=== PATIENT | male | born 1950 | race Two or more races ===

== ENCOUNTER 2021-02-22 11:37 | Outpatient (REF) | payer MEDICARE, OTHER, SELFPAY ==
--- NOTE | ~2021-02-22 | XR_ITS ---
EXAMINATION: XR CERVICAL SPINE CLINICAL INFORMATION: Neck pain COMPARISON: None TECHNIQUE: 3 views of the cervical spine were obtained. FINDINGS: There is mild anterior subluxation of C4 with respect to C5 measuring 2 mm. Bone alignment is otherwise normal. There is degenerative spondylosis and degenerative disc disease at C5-C6 and C6-C7. 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 Prevertebral soft tissues are normal. XR/XR cervical spine 3V IMPRESSION: Degenerative changes.
== END 2021-02-22 11:38 | disposition home or self-care (01) ==
LOC: HO.XRAY 11:37
PROVIDERS: PCP Internal Medicine; Visit Provider Physician Assistant
DX: M54.2 Cervicalgia (principal)
CPT/HCPCS: 72040

== ENCOUNTER 2021-12-20 13:02 | Outpatient (REF) | payer MEDICARE, SELFPAY ==
[2021-12-20 13:53] LABS: Hematocrit 41.6 % (42.0-52.0); Hemoglobin 14.2 g/dl (14.0-18.0); Mean Corpuscular HGB Conc 34.1 g/dl (31.0-36.0); Mean Corpuscular Hemoglobin 30.1 pg (27.0-33.0); Mean Corpuscular Volume 88.1 fL (80.0-98.0); Mean Platelet Volume 10.6 fL (9.4-12.4); Platelet Count 242 X10*3/uL (160-400); Red Blood Count 4.72 X10*6/uL (4.60-5.80); Red Cell Distribution Width 13.9 % (11.0-16.0); White Blood Count 11.8 X10*3/uL (4.8-10.8)
[2021-12-20 13:58] LABS: Appearance Urine CLEAR; Color Urine YELLOW; Glucose Urine UA NEG (NEG); Leukocyte Esterase Urine NEG (NEG); Nitrite Urine NEG (NEG); Specific Gravity - Urine >= 1.030 (1.005-1.025); Urine Blood NEG (NEG); Urine Ketones 15 MG/DL (NEG); Urine Protein NEG (NEG-TRACE)
[2021-12-20 14:11] LABS: Alanine Aminotransferase 22 U/L (0-40); Albumin Level 4.3 g/dL (3.5-5.0); Alkaline Phosphatase 79 U/L (39-117); Anion Gap 14 (12-20); Aspartate Amino Transferase 22 U/L (5-37); Bilirubin Direct 0.4 mg/dL (0.0-0.5); Bilirubin Total 1.1 mg/dL (0.0-1.0); Blood Urea Nitrogen 14 mg/dL (9-16); Calcium 9.6 mg/dL (8.4-10.2); Carbon Dioxide 23 mmol/L (22-29); Chloride 104 mmol/L (96-108); Cholesterol 157 mg/dL; Estimated Glomerular Filt Rate > 60; Glucose Random 104 mg/dL (60-115); HDL Cholesterol 41 mg/dL; LDL Cholesterol Calculated 104 mg/dl; Potassium 4.3 mmol/L (3.3-5.1); Sodium 137 mmol/L (135-145); Total Protein 7.5 g/dL (6.5-8.0); Triglycerides 64 mg/dL
== END 2021-12-20 13:03 | disposition home or self-care (01) ==
LOC: HO.HMGCLDS 13:02
PROVIDERS: Visit Provider Internal Medicine
DX: E78.00 Pure hypercholesterolemia, unspecified (principal)
CPT/HCPCS: 36415; 80048; 80061; 80076; 81003; 85027

== ENCOUNTER 2022-06-03 16:32 | Outpatient (REF) | payer MEDICARE, SELFPAY ==
--- NOTE | ~2022-06-03 | XR_ITS ---
EXAMINATION: XR CHEST CLINICAL INFORMATION: Back pain COMPARISON: Previous chest x-ray most recent from 2013 TECHNIQUE: 2 views of the chest were obtained. FINDINGS: The cardiac and mediastinal contours are normal. There are 2 stable dense nodules of the left lateral costophrenic angle probably representing calcified granulomas. There are faint nodular opacities at both lung bases that appear symmetric probably representing nipple shadows, overlying the right anterior sixth rib and between the left anterior fifth and sixth ribs each measuring 8 mm. The lungs are otherwise clear. There is no pleural effusion or pneumothorax. Bony structures are unremarkable. XR/XR chest 2V IMPRESSION: No evidence for acute disease in the chest. Probable calcified granulomas at the left lateral costophrenic angle and nipple shadows at the lung bases. Follow-up chest x-ray with nipple markers recommended.
== END 2022-06-03 16:33 | disposition home or self-care (01) ==
LOC: HO.XRAY 16:32
PROVIDERS: PCP Internal Medicine; Visit Provider Internal Medicine
DX: M54.9 Dorsalgia, unspecified (principal)
CPT/HCPCS: 71046

== ENCOUNTER 2024-04-06 10:04 | Outpatient (AMB) | payer MEDICARE, SELFPAY ==
[2024-04-06 10:09] VITALS: BP 112/80; PULSE 62; O2SAT 98; BMI 24.3
--- NOTE | 2024-04-06 10:09 | A.OFFPC_ITS ---
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 Meat Required: No Accompanied by: Self / Same As Patient Allergies Penicillins [PENICILLINS] Allergy (Unknown, Verified 04/08/24 08:22) SWELLING Medication List - Last Reconciled 04/08/24 by Guillermo Castellanos MD aspirin 81 mg PO DAILY atorvastatin 20 mg PO BEDTIME Tobacco use date assessed: 04/06/24 Fall risk assessment: No Falls in past year Last assessed Fall Risk: 04/06/24 Dental Screening Dental Screen Date: 04/06/24 Did you have a dental visit in the last 12 months?: No Did you have a dental problem in the last 6 months where you did not have access to dental care?: No Was dental information given to patient?: No HPI annual exam HPI Details Patient presents to the office requesting an annual physical. [facility] Medical History Hypercholesterolemia Surgical History History of endoscopy Family History Father No problems noted. Mother No problems noted. Son No problems noted. Son No problems noted. Son No problems noted. Social History Housing: House Alcohol intake: current Alcohol intake frequency: does not drink Patient Tobacco Use Status: Former Tobacco user (2011) e-Cigarette/Vaping Use: Never Used Second Hand Smoke Exposure: No service: No Current occupational status: retired Cognitive needs: No Hearing needs: No Vision needs: No Questionnaire PHQ-9 Over the last 2 weeks, how often have you been bothered by any of the following problems? 1. Little interest or pleasure in doing things: not at all 2. Feeling down, depressed, or hopeless: not at all 3. Trouble falling or staying asleep, or sleeping too much: not at all 4. Feeling tired or having little energy: not at all 5. Poor appetite or overeating: not at all 6. Feeling bad about yourself - or that you are a failure or have let yourself or your family down: not at all 7. Trouble concentrating on things, such as reading the newspaper or watching television: not at all 8. Moving or speaking so slowly that other people could have noticed. Or the opposite - being so fidgety or restless that you have been moving around a lot more than usual: not at all 9. Thoughts that you would be better off or of hurting yourself in some way: not at all Total score: 0 Depression Screening Interpretation: Negative Depression Screening Done: Yes Source: Developed by Drs. Chai Leon, Jeannette Chu, Leonidas Dhaliwal and colleagues, with an educational mary from [employer]. Thrive Questionnaire Date Thrive assessed: 04/06/24 I am a: Patient What is your living situation today?: I have a steady place to live Within the past 12 months, did the food you bought not last and you didn't have the money to get more?: Never true Within the past 12 months, did you worry whether your food would run out before you got money to buy more?: Never true Do you have trouble paying for medicines?: No Do you have trouble getting transportation to medical appointments?: No Do you have trouble paying your heating and electricity bill?: No Do you have trouble taking care of your child, family member or friend?: No Do you have trouble with day-to-day activities such as bathing, preparing meals, shopping, managing finances, etc.?: No Are you currently unemployed and looking for a job?: No Are you interested in more education?: No Please select the resources that you would like help with: None Currently or been in a relationship where the following occur: No concerns reported THRIVE Score: 0 AUDIT C Alcohol Use Questionnaire (AUDIT-C) 1. How often do you have a drink containing alcohol?: Never Total Score: 0 TAPAN-7 AMB Questionnaire TAPAN-7 Date TAPAN - 7 assessed: 04/06/24 Feeling nervous, anxious, or on edge: 0 = Not at all Not being able to stop or control worryin = Not at all Worrying too much about different things: 0 = Not at all Trouble relaxin = Not at all Being so restless that it is hard to sit still: 0 = Not at all Becoming easily annoyed or irritable: 0 = Not at all Feeling afraid as if something awful might happen: 0 = Not at all Total TAPAN-7 score (0-4 normal; 5-9 mild; 10-14 moderate; 15-21 severe): 0 Source: Developed by Drs. Chai Leon, Jeannette Chu, Leonidas Dhaliwal and colleagues, with an educational mary from [employer]. Physical exam (Primary Care) Vital Signs: Last Vital Signs Pulse 62 04/06/24 10:09 BP 112/80 04/06/24 10:09 Pulse Ox 98 04/06/24 10:09 Oxygen Delivery Method Room Air 04/06/24 10:09 Care Plan Goal for BP management: Blood pressure is in range. BMI result Body Mass Index 24.3 Tobacco/Smoking Status: Tobacco use Status Tobacco use date assessed 04/06/24 04/06/24 10:11 Patient Tobacco Use Status Former Tobacco user (2011) 04/06/24 10:11 e-Cigarette/Vaping Use Never Used 04/06/24 10:11 PHQ-9: PHQ-9 Score PHQ-9: Total score 0 04/06/24 10:26 Depression Screening Interpretation: Negative Thrive Assessment: Date of Thrive Assessment Date Thrive assessed 04/06/24 04/06/24 10:11 Currently or been in a relationship where the following occur: No concerns reported Const General: cooperative and healthy appearing Nutritional Appearance: well nourished Orientation/consciousness: patient oriented x3 Limitations: no limitations HENMT Head: Yes normal to inspection Eyes General: appearance normal, both eyes and all related structures Neck Neck: Yes normal visual inspection Chest Chest palpation & inspection: normal palpation of entire chest wall Resp Effort & Inspection: normal respiratory effort Neuro General: patient oriented x3 Assessment and Plan Assessment & Plan (1) Annual physical exam: Code(s): Z00.00 - Encounter for general adult medical examination without abnormal findings Plan: Patient has intense phobia for needles and therefore will not get any blood work done. He understands that I will not be able to monitor his cholesterol, kidney functions or anemia status without blood work. He is also grieving for the loss of his . Patient is reluctant to get any screening tests done. Coding Level of Care Code Est Pt Prev Care >65y(50963) Diagnoses Annual physical exam Z00.00
== END 2024-04-06 11:14 | disposition home or self-care (01) ==
PROVIDERS: PCP Internal Medicine; Visit Provider Internal Medicine
DX: Z00.00 Encounter for general adult medical examination without abnormal findings (principal)
CPT/HCPCS: 99397

== ENCOUNTER 2024-05-09 09:21 | Outpatient (AMB) | payer MEDICARE, SELFPAY ==
--- NOTE | 2024-05-09 09:28 | MHC.PC.OV ---
Vital Signs 05/09/24 09:29 Height 5 ft 7 in Weight 158 lb BMI 24.7 BP 110/70 Blood Pressure Location Lt brachial Position Sitting Pulse 75 Pulse Source Pulse Oximeter Pulse Oximetry (%) 97 Oxygen Delivery Method Room Air Intake Visit Reasons: Cataract Surgery RT Eye Intake Note: Patient is here for a Pre-op for Right Eye Cataract Surgery scheduled with [facility] on (R)05/25/24 and (L) two weeks after. Coater Required: No Bone Char Kiln Operator: Not Required per policy Accompanied by: Self / Same As Patient Allergies Penicillins [PENICILLINS] Allergy (Unknown, Verified 05/10/24 19:09) SWELLING Medication List - Last Reconciled 05/10/24 by Guillermo Castellanos MD alprazolam (Xanax) 0.5 mg PO DAILY PRN aspirin 81 mg PO DAILY atorvastatin 20 mg PO BEDTIME Tobacco use date assessed: 05/09/24 Fall risk assessment: No Falls in past year Last assessed Fall Risk: 05/09/24 Dental Screening Dental Screen Date: 04/06/24 HPI Cataract Surgery RT Eye HPI Details 73-year-old male presents to the office for a preop clearance. Patient has been scheduled for cataract extraction in the right eye. Surgery is to be done under [facility]. [facility] Medical History Hypercholesterolemia Surgical History History of endoscopy Family History Father No problems noted. Mother No problems noted. Son No problems noted. Son No problems noted. Son No problems noted. Social History Housing: House Alcohol intake: current Alcohol intake frequency: does not drink Patient Tobacco Use Status: Former Tobacco user e-Cigarette/Vaping Use: Never Used Second Hand Smoke Exposure: No service: No Current occupational status: retired Cognitive needs: No Hearing needs: No Vision needs: No Questionnaire Thrive Questionnaire Date Thrive assessed: 04/06/24 TAPAN-7 AMB Questionnaire TAPAN-7 Date TAPAN - 7 assessed: 04/06/24 Source: Developed by Drs. Chai Leon, Jeannette Chu, Leonidas Dhaliwal and colleagues, with an educational mary from [email or web address]. Physical exam (Primary Care) Vital Signs: Last Vital Signs Pulse 75 05/09/24 09:29 BP 110/70 05/09/24 09:29 Pulse Ox 97 05/09/24 09:29 Oxygen Delivery Method Room Air 05/09/24 09:29 BMI result Body Mass Index 24.7 Tobacco/Smoking Status: Tobacco use Status Tobacco use date assessed 05/09/24 05/09/24 09:31 Patient Tobacco Use Status Former Tobacco user 05/09/24 09:31 e-Cigarette/Vaping Use Never Used 05/09/24 09:31 Thrive Assessment: Date of Thrive Assessment Date Thrive assessed 04/06/24 05/09/24 09:31 Const General: cooperative and healthy appearing Nutritional Appearance: well nourished Orientation/consciousness: patient oriented x3 Limitations: no limitations HENMT Head: Yes normal to inspection Eyes General: appearance normal, both eyes and all related structures Neck Neck: Yes normal visual inspection Chest Chest palpation & inspection: normal palpation of entire chest wall Resp Effort & Inspection: normal respiratory effort Neuro General: patient oriented x3 Assessment and Plan Assessment & Plan (1) Hypercholesterolemia: Code(s): E78.00 - Pure hypercholesterolemia, unspecified Plan: Continue current medications (2) Preoperative clearance: Code(s): Z01.818 - Encounter for other preprocedural examination Plan: Patient has extreme anxiety about getting blood work done. Alprazolam will be ordered and blood work should be done within an hour after he takes the medication. Based on the results his clearance will be okayed. Orders: Orders Lipid Panel Today E78.00 - Pure hypercholesterolemia, unspecified UA and rflx microscopic Today E78.00 - Pure hypercholesterolemia, unspecified Basic Metabolic Panel Today E78.00 - Pure hypercholesterolemia, unspecified Liver Panel Today E78.00 - Pure hypercholesterolemia, unspecified Thyroid Stimulating Hormone Today E78.00 - Pure hypercholesterolemia, unspecified Medications: New alprazolam (Xanax) 0.5 mg PO DAILY PRN 5 tabs 0RF anxiety Coding Level of Care Code Est Pt Level 4 (36684) Complex EM visit Add On G2211 Diagnoses Hypercholesterolemia E78.00 Preoperative clearance Z01.818
[2024-05-09 09:29] VITALS: BP 110/70; PULSE 75; O2SAT 97; BMI 24.7
== END 2024-05-09 12:28 | disposition home or self-care (01) ==
PROVIDERS: PCP Internal Medicine; Visit Provider Internal Medicine
DX: E78.00 Pure hypercholesterolemia, unspecified (principal); Z01.818 Encounter for other preprocedural examination

== ENCOUNTER → 2024-05-09 09:21 | Outpatient (BNVA) | payer MEDICARE, SELFPAY | PROVIDERS: PCP Internal Medicine; Visit Provider Internal Medicine | DX: Z01.818 Encounter for other preprocedural examination (principal); H26.9 Unspecified cataract; E78.00 Pure hypercholesterolemia, unspecified | CPT/HCPCS: 99212 ==

== ENCOUNTER 2024-05-11 09:08 | Outpatient (REF) | payer MEDICARE, SELFPAY ==
[2024-05-11 10:33] LABS: Appearance Urine Clear; Color Urine Yellow; Glucose Urine UA Negative (Negative); Leukocyte Esterase Urine Negative (Negative); Nitrite Urine Negative (Negative); PH 5.5 (5.0-9.0); Urine Blood Negative (Negative); Urine Ketones Negative (Negative); Urine Protein Negative (Neg-Trace)
[2024-05-11 10:57] LABS: Alanine Aminotransferase 24 U/L (0-40); Albumin Level 4.4 g/dL (3.5-5.0); Alkaline Phosphatase 71 U/L (39-117); Anion Gap 12 (12-20); Aspartate Amino Transferase 31 U/L (5-37); Bilirubin Direct 0.3 mg/dL (0.0-0.5); Bilirubin Total 0.9 mg/dL (0.0-1.0); Blood Urea Nitrogen 11 mg/dL (9-16); Calcium 9.7 mg/dL (8.4-10.2); Carbon Dioxide 26 mmol/L (22-29); Chloride 106 mmol/L (96-108); Cholesterol 162 mg/dL (<200); Estimated Glomerular Filt Rate > 60; Glucose Random 106 mg/dL (60-115); HDL Cholesterol 53 mg/dL (>40); LDL Cholesterol Calculated 96 mg/dL (<100); Potassium 3.7 mmol/L (3.3-5.1); Sodium 140 mmol/L (135-145); Thyroid Stimulating Hormone 1.34 uIU/mL (0.32-4.0); Total Protein 7.9 g/dL (6.5-8.0); Triglycerides 67 mg/dL (<150)
== END 2024-05-11 09:09 | disposition home or self-care (01) ==
LOC: HO.HMGCLDS 09:08
PROVIDERS: PCP Internal Medicine; Visit Provider Internal Medicine
DX: E78.00 Pure hypercholesterolemia, unspecified (principal)
CPT/HCPCS: 36415; 80048; 80061; 80076; 81003; 84443

== ENCOUNTER 2024-10-28 10:30 | Outpatient (AMB) | payer MEDICARE, SELFPAY ==
--- NOTE | 2024-10-28 10:38 | MHC.PC.OV ---
Vital Signs 10/28/24 10:41 Height 5 ft 7 in Weight 161 lb BMI 25.2 BP 120/68 Blood Pressure Location Lt brachial Position Sitting Pulse 84 Pulse Source Pulse Oximeter Temp 97.3 F Temp Source Temporal Artery Scan Pulse Oximetry (%) 99 Oxygen Delivery Method Room Air Intake Visit Reasons: rsch from 10/14/24 6 Month Follow UP Intake Note: Patient is here to follow up on Hypercholesterolemia. 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: Not Required per policy Accompanied by: Self / Same As Patient Allergies Penicillins [PENICILLINS] Allergy (Unknown, Verified 10/28/24 10:54) SWELLING Medication List - Last Reconciled 10/28/24 by Divya Lorenzo PA-C alprazolam (Xanax) 0.5 mg PO DAILY PRN aspirin 81 mg PO DAILY atorvastatin 20 mg PO BEDTIME Tobacco use date assessed: 10/28/24 Fall risk assessment: No Falls in past year Last assessed Fall Risk: 10/28/24 Dental Screening Dental Screen Date: 10/28/24 Did you have a dental visit in the last 12 months?: No Did you have a dental problem in the last 6 months where you did not have access to dental care?: No Was dental information given to patient?: No PFSH Medical History Chest discomfort Hypercholesterolemia Surgical History History of endoscopy Family History Father No problems noted. Mother No problems noted. Son No problems noted. Son No problems noted. Son No problems noted. Social History Housing: House Alcohol intake: current Alcohol intake frequency: does not drink Patient Tobacco Use Status: Former Tobacco user e-Cigarette/Vaping Use: Never Used Second Hand Smoke Exposure: Yes service: No Current occupational status: retired Cognitive needs: No Hearing needs: No Vision needs: Yes (Glasses) Questionnaire PHQ-9 Over the last 2 weeks, how often have you been bothered by any of the following problems? 1. Little interest or pleasure in doing things: not at all 2. Feeling down, depressed, or hopeless: not at all 3. Trouble falling or staying asleep, or sleeping too much: not at all 4. Feeling tired or having little energy: not at all 5. Poor appetite or overeating: not at all 6. Feeling bad about yourself - or that you are a failure or have let yourself or your family down: not at all 7. Trouble concentrating on things, such as reading the newspaper or watching television: not at all 8. Moving or speaking so slowly that other people could have noticed. Or the opposite - being so fidgety or restless that you have been moving around a lot more than usual: not at all 9. Thoughts that you would be better off or of hurting yourself in some way: not at all Total score: 0 Depression Screening Interpretation: Negative Depression Screening Done: Yes 89449 - PHQ-9 Billing: Yes Source: Developed by Drs. Chai Leon, Jeannette Chu, Leonidas Dhaliwal and colleagues, with an educational mary from [employer]. Thrive Questionnaire Date Thrive assessed: 10/28/24 I am a: Patient What is your living situation today?: I have a steady place to live Within the past 12 months, did the food you bought not last and you didn't have the money to get more?: Never true Within the past 12 months, did you worry whether your food would run out before you got money to buy more?: Never true Do you have trouble paying for medicines?: No Do you have trouble getting transportation to medical appointments?: No Do you have trouble paying your heating and electricity bill?: No Do you have trouble taking care of your child, family member or friend?: No Do you have trouble with day-to-day activities such as bathing, preparing meals, shopping, managing finances, etc.?: No Are you currently unemployed and looking for a job?: No Are you interested in more education?: No Please select the resources that you would like help with: None Currently or been in a relationship where the following occur: No concerns reported THRIVE Score: 0 AUDIT C Alcohol Use Questionnaire (AUDIT-C) 1. How often do you have a drink containing alcohol?: Never Total Score: 0 Score Reviewed/Action Taken: No TAPAN-7 AMB Questionnaire TAPAN-7 Date TAPAN - 7 assessed: 10/28/24 Feeling nervous, anxious, or on edge: 0 = Not at all Not being able to stop or control worryin = Not at all Worrying too much about different things: 0 = Not at all Trouble relaxin = Not at all Being so restless that it is hard to sit still: 0 = Not at all Becoming easily annoyed or irritable: 0 = Not at all Feeling afraid as if something awful might happen: 0 = Not at all Total TAPAN-7 score (0-4 normal; 5-9 mild; 10-14 moderate; 15-21 severe): 0 Source: Developed by Drs. hCai Leon, Jeannette Chu, Leonidas Dhaliwal and colleagues, with an educational mary from [employer]. TAPAN-7 Assessment Billing TAPAN-7 Assessment Tool: TAPAN-7 Assessment 88610 Physical exam (Primary Care) Vital Signs: Last Vital Signs Temp 97.3 F 10/28/24 10:41 Pulse 84 10/28/24 10:41 BP 120/68 10/28/24 10:41 Pulse Ox 99 10/28/24 10:41 Oxygen Delivery Method Room Air 10/28/24 10:41 BMI result Body Mass Index 25.2 Tobacco/Smoking Status: Tobacco use Status Tobacco use date assessed 10/28/24 10/28/24 10:47 Patient Tobacco Use Status Former Tobacco user 10/28/24 10:47 e-Cigarette/Vaping Use Never Used 10/28/24 10:47 PHQ-9: PHQ-9 Score PHQ-9: Total score 0 10/28/24 10:55 Depression Screening Interpretation: Negative Thrive Assessment: Date of Thrive Assessment Date Thrive assessed 10/28/24 10/28/24 10:47 Currently or been in a relationship where the following occur: No concerns reported Office Procedures EKG Details: NSR with a ventricular rate of 108 with a nonspecific changes to ST. Inclusive EKG. Pt sent to ER refused EMS. Understands risk and benefits. [id number], Complete Coding Level of Care Code Est Pt Level 5 (22246) Complex EM visit Add On G2211 Diagnoses Chest discomfort R07.89 Cervicalgia M54.2 Hypercholesterolemia E78.00 Anxiety F41.9 CPT Codes EKG - CPT: 03760-[id number], Complete ([id number]) Additional Codes TAPAN-7 Assessment Billing - TAPAN-7 Assessment Tool: TAPAN-7 Assessment 34031 ([id number]) PHQ-9 - 60822 - PHQ-9 Billing: Yes ([id number]) Assessment & Plan Assessment & Plan (1) Chest discomfort: Code(s): R07.89 - Other chest pain Category: Medical Plan: Symptoms likely linked to recent diet; EKG showed possible ischemic changes. Referral to ER for comprehensive evaluation advised.Pt offer EMS multiple times although pt denies any active chest pain and refusing EMS to ED. Pt understand risk and benefits and still refusing EMS. Pt instructed to go directly to ED. I Discussed this case with Dr. Hutchins and INO Lopez [place] [facility] [place] She is aware pt is on his way. Pt to follow up after discharged from ED/Hospital (2) Cervicalgia: Code(s): M54.2 - Cervicalgia Category: Medical Plan: Chronic neck pain documented; monitor and revisit management strategies if symptoms persist. (3) Hypercholesterolemia: Code(s): E78.00 - Pure hypercholesterolemia, unspecified Category: Medical Plan: Past lipid control with atorvastatin noted; emphasize dietary modifications avoiding added salt. (4) Anxiety: Code(s): F41.9 - Anxiety disorder, unspecified Category: Medical Plan: History of anxiety observed; discussed implications and need for monitoring, though not an acute issue today. Plan Plan Patient was informed and verbally consented to the use of an ambient scribe for clinic note documentation during this visit. 1. Anxiety History of anxiety observed; discussed implications and need for monitoring, though not an acute issue today. 2. Dyslipidemia Past lipid control with atorvastatin noted; emphasize dietary modifications avoiding added salt. 3. Chronic Neck Pain Chronic neck pain documented; monitor and revisit management strategies if symptoms persist. 4. Cardiac Symptoms Evaluation Symptoms likely linked to recent diet; EKG showed possible ischemic changes. Referral to ER for comprehensive evaluation advised. Discussion Notes I discussed with the patient the potential impact of high salt intake on cardiac symptoms, particularly in light of his recent experience with heart racing and chest discomfort. I detailed the EKG results, which indicate changes concerning for possible ischemia, and advised him on the necessity of an immediate evaluation at the emergency department to rule out acute cardiac events. I emphasized that while his symptoms have subsided, the EKG changes require urgent attention. Furthermore, I stressed the importance of maintaining a heart-healthy diet and avoiding excessive salt, particularly considering his history of dyslipidemia. I also instructed the patient to follow up with our office post-hospital discharge for continued monitoring of his cardiovascular status and to ensure successful management of his lipids and any related symptoms. Orders: Orders C Reactive Protein Today Z00.00 - Encounter for general adult medical examination without abnormal findings Lipid Panel Today Z00.00 - Encounter for general adult medical examination without abnormal findings Vitamin B1 Today Z00.00 - Encounter for general adult medical examination without abnormal findings TSH reflex Free T4 Today Z00.00 - Encounter for general adult medical examination without abnormal findings Parathyroid Hormone Intact Today Z00.00 - Encounter for general adult medical examination without abnormal findings Vitamin D 25-OH Total Today Z00.00 - Encounter for general adult medical examination without abnormal findings PSA,Total (Free>4and<10) Today Z00.00 - Encounter for general adult medical examination without abnormal findings Phosphorus Today Z00.00 - Encounter for general adult medical examination without abnormal findings AMB EKG-In Office Today R07.89 - Other chest pain Complete Blood Count Auto Diff Today Z00.00 - Encounter for general adult medical examination without abnormal findings Comprehensive [place]. Panel Fast Today Z00.00 - Encounter for general adult medical examination without abnormal findings Hemoglobin A1c Today Z00.00 - Encounter for general adult medical examination without abnormal findings Liver Panel Today Z00.00 - Encounter for general adult medical examination without abnormal findings Magnesium Today Z00.00 - Encounter for general adult medical examination without abnormal findings Zinc Today Z00.00 - Encounter for general adult medical examination without abnormal findings Vitamin B12 and Folate Today Z00.00 - Encounter for general adult medical examination without abnormal findings Patient Instructions: Patient Instructions - Avoid adding extra salt to your food, particularly chips, as it may affect your heart. - Go immediately to the ER for further evaluation as recommended, including potential blood tests and imaging. - Follow up with our office after discharge from the hospital. - Continue taking your prescribed medications, including atorvastatin and aspirin, as directed. - Monitor for any recurrence of symptoms like chest discomfort or heart racing. - Maintain a heart-healthy diet. Scribe Plan - Not visible on output: History of Present Illness The patient is a 73-year-old male presenting with cardiac symptoms evaluation. A few days ago, he added an excessive amount of salt to his chips, leading to a two-day episode of heart racing and chest discomfort. There was no pain, but he felt uneasy. These symptoms have subsided, with no current pain or discomfort. Previous blood work in March reflected normal levels for glucose and lipids. He regularly takes atorvastatin and aspirin. Social History - Family status: Mentioned a who has a history of health issues and . - Current nutritional intake: Consumes chips with added salt; expresses concerns regarding dietary habits. Review of Systems - Cardiovascular: Reports recent sensation of heart racing and chest discomfort after eating salty chips; Denies current symptoms. - Neurological: Denies dizziness. - Gastrointestinal: Denies nausea, vomiting. - Musculoskeletal: Denies jaw pain, shoulder pain, or back pain. Physical Exam Appearance: Alert. Oriented X3. No acute distress. Head: Normal external exam. Normocephalic. Atraumatic. Eyes: Pupils are equal, round, and reactive to light. Extraocular movements intact. Conjunctiva and sclera normal. Eyelids normal. Ears: External auditory canal normal. Tympanic membranes normal. Throat: Pharynx normal. Uvula midline. Moist mucous membranes. Neck: Normal inspection. Neck supple. Full range of motion. No adenopathy. Thyroid Normal. No meningeal signs. No neck mass noted. Cardiovascular: Normal heart rate and rhythm. Heart sound normal. No murmurs noted. Pulses normal throughout. Respiratory: No respiratory distress. Painless inspiration. Breath sounds normal. No wheezes/rales/rhonchi noted. Chest nontender. No accessory muscle usage noted or decreased air movement noted. Abdomen: Soft and nontender. Bowel sounds normal in all 4 quadrants. No distention noted. No organomegaly noted. No visible injury noted. Back: No costovertebral angle tenderness. Full range of motion noted. Skin: Skin warm and dry. Normal skin color. Normal skin turgor. No rashes/lesions/lacerations noted. Extremities: No lower extremity edema. Extremities exhibit normal range of motion. Extremities nontender. Neuro: Oriented X 3. No motor deficit. No sensory deficit. Reflexes normal. Results - Labs: Prior normal lipid panel and thyroid tests. - Tests and diagnostics: Recent EKG shows possible cardiac concern with ST elevation suggesting ischemia.
[2024-10-28 10:41] VITALS: BP 120/68; PULSE 84; TEMP 36.3; O2SAT 99; BMI 25.2
== END 2024-10-28 11:36 | disposition home or self-care (01) ==
LOC: HO.HMCH 10:31
PROVIDERS: PCP Internal Medicine; Visit Provider Physician Assistant Medical
DX: R07.89 Other chest pain (principal); M54.2 Cervicalgia; E78.00 Pure hypercholesterolemia, unspecified; F41.9 Anxiety disorder, unspecified

== ENCOUNTER 2024-10-28 11:33 | Emergency (ER) | payer MEDICARE, SELFPAY ==
--- NOTE | 2024-10-28 | ECG_ITS ---
Test Reason : cp Blood Pressure : */* mmHG Vent. Rate : 78 BPM Atrial Rate : 78 BPM P-R Int : 126 ms QRS Dur : 82 ms QT Int : 368 ms P-R-T Axes : 54 63 51 degrees QTcB Int : 419 ms Normal sinus rhythm Early repolarization Normal ECG When compared with ECG of 25-Nov-2013 07:24, ST more elevated in Inferior leads ST elevation now present in Lateral leads Referred By: Generic ED Physician Electronically Signed By: SUZANNA AJCOBO
--- NOTE | ~2024-10-28 | XR_ITS ---
EXAMINATION: XR CHEST CLINICAL INFORMATION: chest pain COMPARISON: And 1821. TECHNIQUE: 2 views of the chest were obtained. FINDINGS: The cardiac, hilar, and mediastinal contours are normal. Lungs are mildly diffusely hyperaerated bilaterally. There are 2 calcified granulomata in the left lower lobe laterally. Lungs otherwise clear. There is no pneumothorax or pleural effusion. There is no focal osseous or soft tissue abnormality. XR/XR chest 2V IMPRESSION: 1. Lungs appear somewhat hyperaerated however clear bilaterally. Electronically signed by: Stalin Franz MD 10/28/2024 12:08 PM EDT
[2024-10-28 11:55] VITALS: BP 133/87; PULSE 82; RESP 16; TEMP 36.6; O2SAT 94; BMI 25.1
--- NOTE | 2024-10-28 11:55 | ED.GENADULT ---
HPI - General Adult General Chief complaint: Chest Pain Stated complaint: Chest discomfort, sent by Dr Related Data Home Medications ?Medication ?Instructions ?Recorded ?Confirmed aspirin 81 mg tablet,delayed 81 mg PO DAILY 06/03/22 10/28/24 release Previous Rx's ?Medication ?Instructions ?Recorded alprazolam 0.5 mg tablet (Xanax) 0.5 mg PO DAILY PRN anxiety #5 tabs 05/09/24 atorvastatin 20 mg tablet 20 mg PO BEDTIME #90 tabs 09/16/24 Allergies Allergy/AdvReac Type Severity Reaction Status Date / Time Penicillins [PENICILLINS] Allergy Unknown SWELLING Verified 10/28/24 11:59 PMFSH Past Medical History Medical History Chest discomfort Hypercholesterolemia Surgical History History of endoscopy Family History Family History Father No problems noted. Mother No problems noted. Son No problems noted. Son No problems noted. Son No problems noted. Social History Social History Housing: House Alcohol intake: current Alcohol intake frequency: does not drink Patient Tobacco Use Status: Former Tobacco user e-Cigarette/Vaping Use: Never Used Second Hand Smoke Exposure: Yes service: No Current occupational status: retired Cognitive needs: No Hearing needs: No Vision needs: Yes (Glasses) Physical Exam ED Vital Signs: BMI result Body Mass Index 25.1 Course Course Course Narrative: This is a rapid medical exam performed by Thuy Gonzalez NP: Additional HPI, ROS, PE not included below will be deferred to primary provider. Patient is a 73-year-old male presenting to the ED with complaint of chest discomfort, sent in by PCP. Attributing symptoms to eating too many chips 2 days ago. Reports palpitations, felt heart racing. Plan: EKG, labs, viral swab, CXR Medical Decision Making Lab Data 10/28/24 12:10 10/28/24 12:10 Labs: Lab Results 10/28/24 Range/Units 12:10 WBC 9.2 (4.8-10.8) X10*3/uL RBC 5.05 (4.60-5.80) X10*6/uL Hgb 15.2 (14.0-18.0) g/dl Hct 44.1 (42.0-52.0) % MCV 87.3 (80.0-98.0) fL MCH 30.1 (27.0-33.0) pg MCHC 34.5 (31.0-36.0) g/dl RDW 14.7 (11.0-16.0) % Plt Count 221 (160-400) X10*3/uL MPV 9.5 (9.4-12.4) fL Immature Gran % (Auto) 0.2 (0.0-0.4) % Neut % (Auto) 57.5 (45-73) % Lymph % (Auto) 30.5 (20-40) % Cottle % (Auto) 10.5 (2-11) % Eos % (Auto) 0.9 (0-4) % Baso % (Auto) 0.4 (0-2) % Lymph # (Auto) 2.8 (1.2-4.9) X10*3/uL Cottle # (Auto) 1.0 (0.1-1.2) X10*3/uL Eos # (Auto) 0.1 (0.0-0.4) X10*3/uL Baso # (Auto) 0.0 (0.0-0.2) X10*3/uL Abs Immat Gran (auto) 0.02 (0.00-0.03) X10*3/uL Absolute Neuts (auto) 5.3 (2.0-8.3) x10*3/uL Absolute Nucleated RBC 0.000 (0.0-0.012) X10*3/uL Nucleated RBC % (auto) 0.0 (0.0-0.2) /100WBC Sodium 137 (135-145) mmol/L Potassium 4.1 (3.3-5.1) mmol/L Chloride 105 (96-108) mmol/L Carbon Dioxide 24 (22-29) mmol/L Anion Gap 12 (12-20) BUN 15 (9-16) mg/dL Creatinine 1.00 (0.5-1.4) mg/dL Estim Creat Clear Calc 61.5 Estimated GFR > 60 Random Glucose 102 (60-115) mg/dL Calcium 9.8 (8.4-10.2) mg/dL Magnesium 2.0 (1.6-2.6) mg/dL Total Bilirubin 1.3 H (0.0-1.0) mg/dL AST 22 (5-37) U/L ALT 19 (0-40) U/L Alkaline Phosphatase 62 (39-117) U/L Troponin I High Sens < 2.7 (<3.5-35.0) ng/L Total Protein 8.5 H (6.5-8.0) g/dL Albumin 4.2 (3.5-5.0) g/dL Influenza Type A (PCR) NEGATIVE (Negative) Influenza Type B (PCR) NEGATIVE (Negative) RSV RNA Qual (PCR) NEGATIVE (Negative) SARS-CoV-2 RNA (RT-PCR) NEGATIVE (Negative) Discharge Plan Discharge Clinical Impression: Chest pain Patient Disposition: Left W/O Completing Treatment Prescriptions: No Action atorvastatin 20 mg tablet 20 mg PO BEDTIME Qty: 90 1RF aspirin 81 mg tablet,delayed release (DR/EC) 81 mg PO DAILY alprazolam [Xanax] 0.5 mg tablet 0.5 mg PO DAILY PRN (Reason: anxiety) Qty: 5 0RF Discharge Date/Time: 10/28/24 15:40
[2024-10-28 12:17] LABS: MANUAL DIFF FLAG NO
[2024-10-28 12:18] LABS: Basophils Percent Auto 0.4 % (0-2); Eosinophils Absolute Auto 0.1 X10*3/uL (0.0-0.4); Eosinophils Percent Auto 0.9 % (0-4); Hematocrit 44.1 % (42.0-52.0); Hemoglobin 15.2 g/dl (14.0-18.0); Imm Gran Abs Auto 0.02 X10*3/uL (0.00-0.03); Imm Gran Pct Auto 0.2 % (0.0-0.4); Lymphocytes Absolute Auto 2.8 X10*3/uL (1.2-4.9); Lymphocytes Percent Auto 30.5 % (20-40); Mean Corpuscular HGB Conc 34.5 g/dl (31.0-36.0); Mean Corpuscular Hemoglobin 30.1 pg (27.0-33.0); Mean Corpuscular Volume 87.3 fL (80.0-98.0); Mean Platelet Volume 9.5 fL (9.4-12.4); Monocytes Percent Auto 10.5 % (2-11); Neutrophils Absolute Auto 5.3 x10*3/uL (2.0-8.3); Neutrophils Percent Auto 57.5 % (45-73); Platelet Count 221 X10*3/uL (160-400); Red Blood Count 5.05 X10*6/uL (4.60-5.80); Red Cell Distribution Width 14.7 % (11.0-16.0); White Blood Count 9.2 X10*3/uL (4.8-10.8)
[2024-10-28 12:32] LABS: Alanine Aminotransferase 19 U/L (0-40); Albumin Level 4.2 g/dL (3.5-5.0); Alkaline Phosphatase 62 U/L (39-117); Anion Gap 12 (12-20); Aspartate Amino Transferase 22 U/L (5-37); Bilirubin Total 1.3 mg/dL (0.0-1.0); Blood Urea Nitrogen 15 mg/dL (9-16); Calcium 9.8 mg/dL (8.4-10.2); Carbon Dioxide 24 mmol/L (22-29); Chloride 105 mmol/L (96-108); Creatinine Clr Calc Pharmacy 61.5; Estimated Glomerular Filt Rate > 60; Glucose Random 102 mg/dL (60-115); Potassium 4.1 mmol/L (3.3-5.1); Sodium 137 mmol/L (135-145); Total Protein 8.5 g/dL (6.5-8.0)
[2024-10-28 12:44] LABS: Troponin-I High Sensitivity < 2.7 ng/L (<3.5-35.0)
[2024-10-28 13:01] LABS: Influenza A PCR NEGATIVE (Negative); Influenza B PCR NEGATIVE (Negative); Resp Syncy Virus RNA Qual PCR NEGATIVE (Negative); SARS COV2 PCR INHOUSE NEGATIVE (Negative)
== END 2024-10-28 15:40 | disposition left against medical advice (07) ==
PROVIDERS: Registered Nurse Emergency; Emergency Provider Emergency Medicine; PCP Internal Medicine
DX: R07.89 Other chest pain (principal); R00.2 Palpitations; F41.9 Anxiety disorder, unspecified; Z87.891 Personal history of nicotine dependence; Z03.818 Encounter for observation for suspected exposure to other biological agents ruled out; Z79.899 Other long term (current) drug therapy
CPT/HCPCS: 0241U; 71046; 80053; 83735; 84484; 85025; 93005; 96127; 99212; 99283

== ENCOUNTER → 2024-10-28 11:40 | Outpatient (BNV) | payer MEDICARE, SELFPAY | PROVIDERS: Emergency Provider Emergency Medicine; PCP Internal Medicine; Visit Provider Internal Medicine | DX: I21.29 ST elevation (STEMI) myocardial infarction involving other sites (principal) | CPT/HCPCS: 93010 ==

== ENCOUNTER → 2024-10-28 11:56 | Outpatient (BNV) | payer MEDICARE, SELFPAY | PROVIDERS: PCP Internal Medicine; Visit Provider Radiology Diagnostic Radiology | DX: R07.9 Chest pain, unspecified (principal) | CPT/HCPCS: 71046 ==

== ENCOUNTER 2025-02-02 09:27 | Outpatient (AMB) | payer MEDICARE, SELFPAY ==
[2025-02-02 09:28] VITALS: BP 126/72; PULSE 86; TEMP 36.8; O2SAT 96; BMI 25.8
--- NOTE | 2025-02-02 09:28 | AM.OFFWIN_ITS ---
Intake Vital Signs 02/02/25 09:28 Height 5 ft 7 in Weight 164 lb 8 oz BMI 25.8 BP 126/72 Blood Pressure Location Rt brachial Position Sitting Pulse 86 Pulse Source Pulse Oximeter Temp 98.2 F Temp Source Oral Pulse Oximetry (%) 96 Oxygen Delivery Method Room Air Intake Visit Reasons: EP RT hand numbness Intake Note: Patient presents with right hand numbness times 2 weeks. 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 - The numbness began two weeks ago follo wing extensive use of a chainsaw for yard work. - The patient denies pain but reports a burning sensation in the first two fingers. - He has a weird and decreased sensation when he feels the first two fingers. - There is no history of diabetes, and n o pain or swelling in the arm or wrist. - The patient suspects nerve compression due to the use of heavy equipment. - He denies hand pain, wrist pain, arm p ain, joint pain. He is right hand dominant. - He denies fall. Physical Exam General: Cooperative, healthy appearing, comfortable, no acute distress and well developed Respiratory: Normal respiratory effort and able to speak in complete sentences. Clear to auscultation bilaterally Cardiovascular: Regular rate and rhythm. Normal S1 and S2 Skin: No rashes or lesions noted Neuro: Sensation intact on the digits on the right hand. Extremities: Normal to inspection. FROM of the right digits and wrist. No TTP of the medial or lateral wrist. No TTP of the DIP, PIP, or MCP joints on the right hand, no nodules noted. Negative Prayer test on the right. Negative Phalen's and Tinel's on the right. 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 Patient was informed and verbally consented to the use of an ambient scribe for clinic note documentation during this visit. [facility] Medical History Chest discomfort Hypercholesterolemia Surgical History History of endoscopy Family History Father No problems noted. Mother No problems noted. Son No problems noted. Son No problems noted. Son No problems noted. Social History Housing: House Alcohol intake: current Alcohol intake frequency: does not drink Patient Tobacco Use Status: Former Tobacco user e-Cigarette/Vaping Use: Never Used Second Hand Smoke Exposure: Yes service: No Current occupational status: retired Cognitive needs: No Hearing needs: No Vision needs: Yes (Glasses) Review of Systems Const All systems reviewed & are unremarkable except as noted in HPI and below Physical Exam Vital Signs: Last Vital Signs Temp 98.2 F 02/02/25 09:28 Pulse 86 02/02/25 09:28 BP 126/72 02/02/25 09:28 Pulse Ox 96 02/02/25 09:28 Oxygen Delivery Method Room Air 02/02/25 09:28 BMI result Body Mass Index 25.8 Assessment & Plan Assessment & Plan (1) 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 - Use a wrist splint during activities to help alleviate symptoms. - Follow up with primary care for an EMG study to evaluate for nerve damage. Coding Level of Care Code Est Pt Level 4 (04869) Diagnoses Neuropathy of right hand G56.91
== END 2025-02-02 10:06 | disposition home or self-care (01) ==
PROVIDERS: PCP Internal Medicine; Visit Provider Physician Assistant Medical
DX: G56.91 Unspecified mononeuropathy of right upper limb (principal)

== ENCOUNTER → 2025-02-02 09:27 | Outpatient (BNVA) | payer MEDICARE, SELFPAY | PROVIDERS: PCP Internal Medicine; Visit Provider Physician Assistant Medical | DX: G56.91 Unspecified mononeuropathy of right upper limb (principal) | CPT/HCPCS: 99212 ==

== ENCOUNTER 2025-04-13 09:28 | Outpatient (AMB) | payer MEDICARE, SELFPAY ==
[2025-04-13 09:31] VITALS: BP 102/70; PULSE 64; TEMP 36.3; O2SAT 97; BMI 24.8
--- NOTE | 2025-04-13 09:31 | A.OFFPC_ITS ---
Vital Signs 04/13/25 09:31 Height 5 ft 7 in Weight 158 lb 6 oz BMI 24.8 BP 102/70 Blood Pressure Location Lt brachial Position Sitting Pulse 64 Pulse Source Pulse Oximeter Temp 97.3 F Temp Source Temporal Artery Scan Pulse Oximetry (%) 97 Oxygen Delivery Method Room Air Intake Visit Reasons: Annual Exam - see comments Intake Note: Patient is here today for a physical. Hand Edger Required: No Remote Operations Producer: Not Required per policy Accompanied by: Self / Same As Patient Allergies Penicillins (PENICILLINS) Allergy (Unknown, Verified 04/13/25 09:31) SWELLING Tobacco use date assessed: 04/13/25 Fall risk assessment: No Falls in past year Last assessed Fall Risk: 04/13/25 Dental Screening Dental Screen Date: 10/28/24 FOR[facility], [facility] Medical History Chest discomfort Hypercholesterolemia Surgical History History of endoscopy Family History Father No problems noted. Mother No problems noted. Son No problems noted. Son No problems noted. Son No problems noted. Social History Housing: House Alcohol intake: current Alcohol intake frequency: does not drink Patient Tobacco Use Status: Former Tobacco user e-Cigarette/Vaping Use: Never Used Second Hand Smoke Exposure: Yes service: No Current occupational status: retired Cognitive needs: No Hearing needs: No Vision needs: Yes (Glasses) Questionnaire PHQ-9 Over the last 2 weeks, how often have you been bothered by any of the following problems? 1. Little interest or pleasure in doing things: not at all 2. Feeling down, depressed, or hopeless: not at all 3. Trouble falling or staying asleep, or sleeping too much: not at all 4. Feeling tired or having little energy: not at all 5. Poor appetite or overeating: not at all 6. Feeling bad about yourself - or that you are a failure or have let yourself or your family down: not at all 7. Trouble concentrating on things, such as reading the newspaper or watching television: not at all 8. Moving or speaking so slowly that other people could have noticed. Or the opposite - being so fidgety or restless that you have been moving around a lot more than usual: not at all 9. Thoughts that you would be better off or of hurting yourself in some way: not at all Total score: 0 Depression Screening Interpretation: Negative Depression Screening Done: Yes Source: Developed by Drs. Chai Leon, Jeannette Chu, Leonidas Dhaliwal and colleagues, with an educational mary from [employer]. Thrive Questionnaire Date Thrive assessed: 10/28/24 TAPAN-7 AMB Questionnaire TAPAN-7 Date TAPAN - 7 assessed: 04/13/25 Feeling nervous, anxious, or on edge: 0 = Not at all Not being able to stop or control worryin = Not at all Worrying too much about different things: 0 = Not at all Trouble relaxin = Not at all Being so restless that it is hard to sit still: 0 = Not at all Becoming easily annoyed or irritable: 0 = Not at all Feeling afraid as if something awful might happen: 0 = Not at all Total TAPAN-7 score (0-4 normal; 5-9 mild; 10-14 moderate; 15-21 severe): 0 Source: Developed by Drs. Chai Leon, Jeannette Chu, Leonidas Dhaliwal and colleagues, with an educational mary from [employer]. Physical exam (Primary Care) Vital Signs: Last Vital Signs Temp 97.3 F 04/13/25 09:31 Pulse 64 04/13/25 09:31 BP 102/70 04/13/25 09:31 Pulse Ox 97 04/13/25 09:31 Oxygen Delivery Method Room Air 04/13/25 09:31 BMI result Body Mass Index 24.8 Tobacco/Smoking Status: Tobacco use Status Tobacco use date assessed 04/13/25 04/13/25 09:38 Patient Tobacco Use Status Former Tobacco user 04/13/25 09:38 e-Cigarette/Vaping Use Never Used 04/13/25 09:38 PHQ-9: PHQ-9 Score PHQ-9: Total score 0 04/13/25 09:38 Depression Screening Interpretation: Negative Thrive Assessment: Date of Thrive Assessment Date Thrive assessed 10/28/24 04/13/25 09:38 Coding Level of Care Code Est Pt Level 4 (23129) Complex EM visit Add On G2211 Diagnoses Hypercholesterolemia E78.00 Assessment & Plan Assessment & Plan (1) Hypercholesterolemia: Code(s): E78.00 - Pure hypercholesterolemia, unspecified Category: Medical Plan: History of Present Illness - The patient is a 74-year-old male presenting with muscle cramps. - He experienced chest discomfort several months ago and was advised to visit the emergency department. - Muscle cramps occur at night and persist until he falls asleep; he uses [employer] and drinks water with electrolytes for relief. - Reports hearing loss in one ear. - Engages in housework, yard work, and assists neighbors, maintaining an active lifestyle. Social History - The patient lives with one of his sons and stays active by doing housework and yard work. - He also helps his neighbor with yard work, indicating a supportive community involvement. Review of Systems - Cardiovascular: Reports chest discomfort several months ago. - Musculoskeletal: Reports muscle cramps at night. - Neurological: Reports hearing loss in one ear. Physical Exam General: Cooperative and healthy appearing Nutritional Appearance: Well nourished Orientation/consciousness: Patient oriented x3 Limitations: No limitations Head: Normal to inspection General: Appearance normal, both eyes and all related structures Neck: Normal visual inspection Chest: Normal palpation of entire chest wall Respiratory: N ormal respiratory effort Neurology: Patient oriented x3, reports muscle cramps at night. Results Plan 1. Chest Discomfort - Advised to visit the emergency department when experiencing chest discomfort. 2. Muscle Cramps - Uses [employer] and drinks water with electrolytes for relief. 3. Hearing Loss - Reports hearing loss in one ear; no specific plan discussed. Discussion Notes Patient Instructions Medications: Refilled atorvastatin 20 mg PO BEDTIME 90 tabs 1RF
== END 2025-04-13 11:50 | disposition home or self-care (01) ==
LOC: HO.HMCH 09:29
PROVIDERS: PCP Internal Medicine; Visit Provider Internal Medicine
DX: E78.00 Pure hypercholesterolemia, unspecified (principal)

== ENCOUNTER → 2025-04-13 09:28 | Outpatient (BNVA) | payer MEDICARE, SELFPAY | PROVIDERS: PCP Internal Medicine; Visit Provider Internal Medicine | DX: R25.2 Cramp and spasm (principal); E78.00 Pure hypercholesterolemia, unspecified | CPT/HCPCS: 96127; 99212 ==